=== PATIENT | male | born 1995 | race Asian ===

== ENCOUNTER → 2017-09-01 | Outpatient (CLI) | payer OTHER ==
[~2017-09-01] MED LIST: GADAVIST IV PRN
--- NOTE | 2017-09-01 12:16 | DIAGNOSTIC IMAGING REPORT ---
BRAIN COMBO HISTORY: 22 years-old Male A[employer] acute speech alteration history of remote stroke COMPARISON: None available TECHNIQUE: Multiplanar multisequence MRI of the brain was obtained both with and without the use of 8.5 mL Gadavist FINDINGS: There is no restricted diffusion to suggest acute ischemia. Midline structures including the corpus callosum, brainstem, optic chiasm, and pineal gland are unremarkable. There is mild superior convexity involving the pituitary gland which is likely physiologic without discrete lesion identified. No acute intracranial hemorrhage, midline shift, abnormal extra-axial collections, hydrocephalus or intracranial mass. There are a few punctate foci of mildly increased T2/FLAIR signal within the subcortical white matter of the frontal lobes as seen on image 9 of series 7 which are likely of no clinical significance. Gliosis from chronic migraines is a differential consideration. There is no abnormal intra-axial or extra-axial enhancement. Focal area of increased T2/FLAIR signal within the region of the left thalamus and posterior limb internal capsule, 8 x 8 mm suggests remote lacunar infarction. Major flow voids at the level of the skull base are patent. Mild mucosal thickening of the nasal turbinates and ethmoid air cells. Scalp and soft tissues are unremarkable. Mastoid air cells appear clear. IMPRESSION: 1. No acute intracranial abnormality identified. No abnormal enhancement or acute ischemia. 2. Probable remote lacunar infarction of the left thalamus and posterior limb internal capsule, 8 x 8 mm. 3. Mild ethmoid sinus disease. The above report was generated using voice recognition software. It may contain grammatical, syntax or spelling errors. Electronically signed by: Michael Esquivel M.D. 09/01/2017 12:15 PM Dictated Date/Time: 09/01/2017 12:08 PM
== END | disposition home or self-care (01) ==
LOC: C.MRI 11:18
PROVIDERS: ATTEND Emergency Medicine
DX: F80.81 Childhood onset fluency disorder (principal); J32.2 Chronic ethmoidal sinusitis